=== PATIENT | male | born 1975 | race Caucasian/White ===

== ENCOUNTER 2016-10-14 01:33 | Inpatient (IN) | payer OTHER ==
[~2016-10-14] VITALS: Ht 193 cm; Wt 82.6 kg
[~2016-10-14 01:33] MED LIST: FLOMAX0.4 M1 PO; VICODIN 5-3001 EACH PO
--- NOTE | 2016-10-14 09:40 | Operative Report ---
Operative/Inv Procedure Report Surgery Date: 10/14/16 Name of Procedure: R renal ESWL Pre-Operative Diagnosis: Right renal calculus Post-Operative Diagnosis: Same Estimated Blood Loss: scant Surgeon/Clerk To Justice: Amandeep KHAN,YOUNG House Anesthesia: moderate sedation Drains: None Specimens: None Complications: None Condition: Stable Operative Indication: Right renal calculus, 1 cm in size, with right flank pain Operative/Procedure Note Note: The patient was taken to the lithotripsy room and identified. He was placed in supine position on the lithotripsy table and a timeout was executed appropriately with the patient awake. Intravenous sedation was given. The stone was localized by ultrasound the F2 focal point. The treatment was then begun. The energy level was started at a minimal level and was increased to a maximum level. A total of 2500 shocks were given. The stone did appear to fragment by ultrasound criteria. The patient tolerated the procedure wellcompletion was taken Findings: 1 cm right renal pelvic stone Discharge Disposition: PACU
[2016-10-14 14:01] LABS: ABSOLUTE BASOPHIL COUNT 0 /CUMM (0.0-0.2); ABSOLUTE EOSINOPHIL COUNT 0 /CUMM (0.0-0.7); ABSOLUTE GRANULOCYTE CT 10.5 /CUMM (1.4-6.5); ABSOLUTE LYMPH COUNT 1.1 /CUMM (1.2-3.4); ABSOLUTE MONOCYTE COUNT 0.8 /CUMM (0.10-0.60); BASOPHIL % 0.2 % (0.0-2.0); EOSINOPHIL % 0.2 % (0-5); HEMATOCRIT 37.6 % (42-52); MEAN CORPUSCULAR HGB 21.9 PG (27.0-31.0); MEAN CORPUSCULAR HGB CONC 32.8 G/DL (33.0-37.0); MEAN CORPUSCULAR VOLUME 66.8 FL (80.0-94.0); MEAN PLATELET VOLUME 8.1 FL (7.4-10.4); PLATELET COUNT 244 /CUMM (130-400); RBC DISTRIBUTION WIDTH 14.4 % (11.5-14.5); RED BLOOD CELL CT 5.63 /CUMM (4.70-6.10)
[2016-10-14 14:41] LABS: GRANULOCYTE % 84.4 % (42.2-75.2)
[2016-10-14 14:51] LABS: WHITE BLOOD CELL COUNT 12.5 /CUMM (4.8-10.8)
[2016-10-14 16:02] VITALS: BP 164/110
--- NOTE | 2016-10-14 18:03 | CT SCAN REPORT ---
EXAMINATION: CT ABDOMEN AND PELVIS WITHOUT CONTRAST CLINICAL INFORMATION: Stone fragments. Evaluate for hydronephrosis. Status post ESWL COMPARISON: CT stone study dated 09/24/2016 TECHNIQUE: Multidetector volumetric imaging was performed from the superior aspect of the liver through the pubic symphysis. Sagittal and coronal reformatted images were obtained on the technologist's workstation. DLP: 332.03 mGy-cm FINDINGS: LUNG BASES: Interval development of bibasilar dependent atelectatic changes.. LIVER, GALLBLADDER, AND BILIARY TREE: The liver is normal in size, shape, and attenuation. No focal hepatic lesion or biliary ductal dilatation is present. The gallbladder is unremarkable with no evidence of radiopaque gallstones, gallbladder wall thickening, or obvious pericholecystic inflammatory changes. PANCREAS: Unremarkable. SPLEEN: Unremarkable. ADRENAL GLANDS: Unremarkable. KIDNEYS AND URETERS: Previously identified large calculus within the renal pelvis is no longer visualized. New dependent calcific debris noted in the renal pelvis and calyces compatible with post ESWL changes. The slightly larger calcific fragments noted in the calyces in the mid and lower pole measuring approximately 0.5 to 0.7 cm[address] Stein[address]asse sign with multiple small fragments noted in the distal right ureter and UVJ with the largest fragment measuring approximately 0.7 cm. (Coronal images 56-60). Tiny debris also noted in the mid right ureter. There is interval increase in the hazy perinephric and periureteric stranding surrounding the right kidney, renal pelvis and ureter. Stable nonobstructing calculi noted in the mid and lower left kidney measuring approximately 0.2 cm and 0.7 cm in maximal diameter respectively. BLADDER: Obstructing calculi noted in the right UVJ as detailed. Tiny calculi also noted within the urinary bladder. GASTROINTESTINAL TRACT: No acute bowel pathology. Nonobstructive bowel gas pattern. Visualized bowel perez are within normal limits. ABDOMINAL WALL: No significant hernia is appreciated. LYMPH NODES: Normal. VASCULAR: Unremarkable. PELVIC VISCERA: Mildly enlarged prostate gland measuring approximately 4.2 cm in greatest transverse diameter. OSSEOUS STRUCTURES: No acute osseous abnormality. IMPRESSION: 1. Post ESWL. Multiple calcific fragments varying in size from amorphous debris to approximately 0.7 cm noted within the right renal pelvicalyceal system and right ureter. Multiple stone fragments in the distal ureter/UVJ "Steinstrasse" resulting in obstructive uropathy. It is difficult to measure individual fragments. The larger fragment appears to measure approximately 0.7 cm. 2. Tiny calculi within the urinary bladder. 3. Increasing perinephric and periureteric stranding. 4. Stable nonobstructing left renal calculi. 5. Interval development of bibasilar dependent atelectatic changes bilateral lung bases
[2016-10-14 21:16] VITALS: BP 156/84
[2016-10-15 00:01] VITALS: BP 150/90
[2016-10-15 01:30] VITALS: BP 148/80
--- NOTE | 2016-10-15 07:24 | History & Physical Pre-Op ---
General Information and HPI Source of Information: patient, old records Exam Limitations: no limitations History of Present Illness: This patient was diagnosed with a 1 cm R renal pelvic stone on a w/u for hematuria. On 10/14/16 he underwent R renal ESWL. Postop he developed significant R flank pain and nausea and vomiting and was admitted. CT scan shows steinstrasse of the R distal ureter. He continues to have R flank pain and nausea and vomiting. Allergies/Medications Allergies: Coded Allergies: No Known Allergies (10/11/16) Home Med list Hydrocodone/Acetaminophen (Vicodin 5-300 MG Tablet) (Unknown Strength) TABLET (Unknown Dose) PO PRN PAIN (Reported) Tamsulosin HCl (Flomax) 0.4 MG CAP.ER.24H 1 CAP PO DAILY KIDNEY STONES ( Reported) Compliance With Home Meds: GOOD Past History Medical History Blood Transfusion Hx: No Neurological: NONE EENT: NONE Cardiovascular: hypertension Respiratory: NONE Gastrointestinal: NONE Hepatic: NONE Renal: nephrolithiasis Musculoskeletal: NONE Psychiatric: anxiety, depression Endocrine: NONE Blood Disorders: THALASSEMIA MINOR Cancer(s): NONE ANIMAL ATTENDANT/Reproductive: NONE History of MRSA: No History of VRE: No History of CDIFF: No Isolation History: Standard Surgical History Pertinent Surgical History: none (ESWL) Past Family/Social History Family History Relations & Conditions if any Relation not specified for: *No pertinent family history Psychosocial History Smoking Status: Unknown If Ever Smoked Exam & Diagnostic Data Last 24 Hrs of Vital Signs/I&O Vital Signs Date Time Temp Pulse Resp B/P Pulse O2 O2 Flow FiO2 Ox Delivery Rate 10/15 0130 98.4 75 19 148/80 96 Room Air 10/15 0001 98.4 82 18 150/90 97 Room Air 10/14 2116 62 156/84 10/14 1658 96 160/108 10/14 1602 97.9 62 20 164/110 98 Intake & Output 10/15 0800 10/15 0000 10/14 1600 Intake Total Output Total 875 Balance -875 Output, 200 Emesis Output, Urine 675 Patient 182 lb Weight Moderate discomfort Chest: normal respiratory effort Heart: RRR Back: R CVA tenderness Abd: non tender Laboratory Tests 10/15 10/14 0645 1358 Chemistry Sodium (137 - 145 mmol/L) Pending 138 Potassium (3.5 - 5.1 mmol/L) Pending 4.4 Chloride (98 - 107 mmol/L) Pending 101 Carbon Dioxide (22 - 30 mmol/L) Pending 29 Anion Gap (5 - 16) Pending 8 BUN (9 - 20 mg/dL) Pending 14 Creatinine (0.7 - 1.2 mg/dL) Pending 0.8 Estimated GFR (>60 ml/min) > 60 BUN/Creatinine Ratio (7 - 25 %) Pending 17.5 Hematology CBC w Diff Pending NO MAN DIFF REQ WBC (4.8 - 10.8 /CUMM) Pending 12.5 H RBC (4.70 - 6.10 /CUMM) Pending 5.63 Hgb (14.0 - 18.0 G/DL) Pending 12.4 L Hct (42 - 52 %) Pending 37.6 L MCV (80.0 - 94.0 FL) Pending 66.8 L MCH (27.0 - 31.0 PG) Pending 21.9 L RDW (11.5 - 14.5 %) Pending 14.4 Plt Count (130 - 400 /CUMM) Pending 244 MPV (7.4 - 10.4 FL) Pending 8.1 Gran % (42.2 - 75.2 %) 84.4 H Lymphocytes % (20.5 - 51.1 %) 9.0 L Monocytes % (1.7 - 9.3 %) 6.2 Eosinophils % (0 - 5 %) 0.2 Basophils % (0.0 - 2.0 %) 0.2 Absolute Granulocytes (1.4 - 6.5 /CUMM) 10.5 H Absolute Lymphocytes (1.2 - 3.4 /CUMM) 1.1 L Absolute Monocytes (0.10 - 0.60 /CUMM) 0.8 H Absolute Eosinophils (0.0 - 0.7 /CUMM) 0 Absolute Basophils (0.0 - 0.2 /CUMM) 0 PUBS MCHC (33.0 - 37.0 G/DL) Pending 32.8 L Assessment/Plan Assessment/Plan: Imp: Multiple R distal ureteral stone fragments Plan: NPO today Will schedule cysto and attempted R ureteral stent today As Ranked By This Provider Problem List: 1. Ureteral colic Attending MD Review Statement Attending Statement Attending MD Statement: examined this patient
[2016-10-15 07:43] LABS: ABSOLUTE BASOPHIL COUNT 0 /CUMM (0.0-0.2); ABSOLUTE EOSINOPHIL COUNT 0 /CUMM (0.0-0.7); ABSOLUTE GRANULOCYTE CT 8.3 /CUMM (1.4-6.5); ABSOLUTE MONOCYTE COUNT 1.2 /CUMM (0.10-0.60); BASOPHIL % 0 % (0.0-2.0); EOSINOPHIL % 0.2 % (0-5); GRANULOCYTE % 79.2 % (42.2-75.2); HEMATOCRIT 35.2 % (42-52); MEAN CORPUSCULAR HGB 22.1 PG (27.0-31.0); MEAN CORPUSCULAR HGB CONC 32.4 G/DL (33.0-37.0); MEAN CORPUSCULAR VOLUME 68.2 FL (80.0-94.0); MEAN PLATELET VOLUME 8.4 FL (7.4-10.4); PLATELET COUNT 200 /CUMM (130-400); RBC DISTRIBUTION WIDTH 14.5 % (11.5-14.5); RED BLOOD CELL CT 5.17 /CUMM (4.70-6.10); WHITE BLOOD CELL COUNT 10.5 /CUMM (4.8-10.8)
[2016-10-15 08:19] VITALS: BP 146/84
[2016-10-15 13:08] VITALS: BP 146/98
--- NOTE | 2016-10-15 16:25 | RADIOLOGY REPORT ---
EXAMINATION: XR KIDNEYS, URETER, BLADDER CLINICAL INDICATION: Right stent placement COMPARISON: CT 10/14/2016 TECHNIQUE: Intraoperative fluoroscopic assistance was provided to Dr. Espinal for right stent placement. 2 spot images were saved. Total fluoroscopic time was 17.9 seconds. FINDINGS: First image demonstrates the upper portion of a right ureteral stent overlying the pelvis. There is contrast opacification of the renal pelvis and proximal ureter. Second image demonstrates the lower part of a ureteral stent in the region of the urinary bladder. IMPRESSION: Intraoperative fluoroscopic assistance for right ureteral stent placement. See procedure note for full details.
--- NOTE | 2016-10-15 16:29 | Operative Report ---
Operative/Inv Procedure Report Surgery Date: 10/15/16 Name of Procedure: Cystoscopy and insertion of right double-J ureteral stent Pre-Operative Diagnosis: Right hydroureteronephrosis due to right ureteral steinstrasse Post-Operative Diagnosis: Same Estimated Blood Loss: maritza Surgeon/Loading Unit Operator Crimping: Teddy KHAN, Al FUNEZ MD,AL House Anesthesia: local monitored anesthesi Drains: 28 cm 6 Malaysian right double-J ureteral stent with a long suture Specimens: Right kidney urine for culture Complications: None Condition: Stable Operative Indication: This patient underwent ESWL one day prior to the present procedure. This was done for 1 cm stone in the right renal pelvis. Patient developed severe right flank pain and required admission to the hospital. Noncontrast CT of the abdomen and pelvis showed right distal ureteral Steinstrasse therefore was felt that he should have a right double-J ureteral stent placed Operative/Procedure Note Note: The patient was taken to the cystoscopy room and identified. He was placed in supine position on the cystoscopy table. A timeout was executed appropriately with the patient awake. Intravenous anesthesia was then given. He was then placed in the dorsolithotomy position and prepped and draped in usual fashion for cystoscopy. Surgical pause was executed appropriately. Fluoroscopy image was taken with a marker on the right side of the abdomen to confirm the correct side of the surgery as well as the correct orientation of the fluoroscopy image. Distal ureteral stone fragments could be seen on this image. The 22 Malaysian cystoscope sheath was placed into the bladder under direct vision using the 30 lens. Anterior urethra was normal. Prostatic urethra was nonobstructing. The bladder was essentially normal. The right ureteral orifice appeared in normal location. A guidewire was placed through the cystoscope and into the right ureter and advanced up the level of the kidney. Once the wire was placed fair amount of debris was expelled from the right ureter. An open-ended catheter was placed over the wire and the wire removed. Some contrast was injected to outline the right renal collecting system after a hydronephrotic drip was noted and urine collected for culture. The contrast injection confirmed the right moderate hydronephrosis. The guidewire was placed back through the open-ended catheter which was removed. Under visual fluoroscopic control a 28 cm 6 Malaysian right double-J ureteral stent was placed. Fluoroscopy confirmed the proximal and coiled in the renal pelvis and the distal end coiled in the bladder. A long suture was left attached the distal and the stent exiting the urethra. Patient tolerated the procedure well and as completion was taken recovery room in stable condition. Findings: Right hydroureteronephrosis due to right distal ureteral Steinstrasse Discharge Disposition: PACU
[2016-10-15 20:11] VITALS: BP 160/90
[2016-10-16 00:13] VITALS: BP 110/80
[2016-10-16 05:54] VITALS: BP 120/70
[2016-10-16 08:00] VITALS: BP 120/78
--- NOTE | 2016-10-16 10:05 | PN- Urology ---
Subjective Subjective: No distress Objective Vital Signs and I&Os Vital Signs Date Time Temp Pulse Resp B/P Pulse O2 O2 Flow FiO2 Ox Delivery Rate 10/16 08 97.4 69 18 120/78 96 Room Air 10/16 0554 98.2 71 20 120/70 98 Room Air 10/16 0013 98.5 90 20 110/80 96 Room Air 10/15 2010 98.9 88 20 160/90 97 10/15 1308 146/98 Intake & Output 10/16 1600 10/16 0800 10/16 0000 10/15 1600 10/15 0800 10/15 0000 Intake Total 1120 923 947 7502 Output Total 1200 1500 1150 875 Balance -80 -760 -275 125 Intake, IV 1000 043 187 2408 Intake, Oral 120 240 0 Number 0 0 0 Bowel Movements Output, 200 Emesis Output, Urine 1200 1500 1150 675 Patient 182 lb Weight Back: no CVA tenderness Abd: soft and nontender Assessment/Plan Assessment/Plan Imp: s/p R renal ESWL with R distal ureteral steinstrasse s/p R ureteral stent Plan: Discharge home today on flomax f/u in office in 1 week with KUB before Core Measures/Miscellaneous Venous Thromboembolism VTE Risk Factors: Acute medical illness, Age > 40 VTE Contraindications: No Contraindications VTE Prophylaxis Ordered Inpt: Pharm- Heparin VTE Diagnosis: No Beta Kaleb Is Beta Kaleb a Home Med? No Antibiotics Is Patient on Antibiotics? No
[2016-10-16 10:50] VITALS: BP 120/78
--- NOTE | 2016-10-16 12:57 | Discharge Summary ---
Visit Information Visit Dates Admission Date: 10/14/2016 Discharge Date: 10/16/2016 Hospital Course Course Attending Physician: ARMIN KHAN,YOUNG House Primary Care Physician: MICHAEL FORBES DO Hospital Course: He underwent ESWL on 10/14/2016 for a 1 cm R renal stone. Following the procedure he developed severe R flank pain and was admitted for pain control. A CT scan showed multiple stone fragments in the R distat ureter with moderate R hydronephrosis. On 10/15/16 he underwent cystostopy and insertion of a R ureteral stent. His R flank pain then resolved and he was discharged home. He will f/u in the office in about 1 week with a KUB before. Complications: R ureteral colic due to multiple stone fragments in the R distal ureter Allergies: Coded Allergies: No Known Allergies (10/11/16) Significant Procedures: R renal ESWL Cystoscopy and insertion of R ureteral stent Disposition Summary Disposition Principal Diagnosis: R renal and ureteral stones Additional Diagnosis: none Discharge Disposition: home or self care Discharge Instructions General Discharge Information Code Status: Full Code Patient's Diet: flomax Patient's Activity: as tolerated Follow-Up Instructions/Appts: office f/u in 7-10 days with KUB before Medications at Discharge Discharge Medications: Continue taking these medications: Tamsulosin HCl (Flomax) 0.4 MG CAP.ER.24H 1 Capsule ORAL DAILY Comments: Last Taken:10/16/16 Time:10:50AM Hydrocodone/Acetaminophen (Vicodin 5-300 MG Tablet) (Unknown Strength) TABLET Unknown Dose ORAL as needed for PAIN Comments: Last Taken:10/14/16 Time:8:20PM Copies To: MICHAEL FORBES DO
[2016-10-17] MEDS ORDERED: DILAUDID2 M1 PO (17:49)
[2016-10-17] MEDS ORDERED: MOVANTIK12.5 M1 PO (18:01)
== END 2016-10-16 13:25 | DRG 669 ==
LOC: ENRESERVTM → ENRESERV → CANRESERV → ENRESERVDT → STS 01:33 → PACUH 13:25 → 2NB 13:25 → ENPENDDIS 13:25 → 2NB 13:25
PROVIDERS: Physician Assistant; ADMIT Urology
PROC: 0TC Urinary System, Extirpation (ICD-10-PCS; principal; 2016-10-14)
PROC: 0T767DZ Dilation of Right Ureter with Intraluminal Device, Via Natural or Artificial Opening (ICD-10-PCS; 2016-10-14)
DX: N20.0 Calculus of kidney (principal); N13.2 Hydronephrosis with renal and ureteral calculous obstruction; I10 Essential (primary) hypertension; D56.3 Thalassemia minor
CPT/HCPCS: 2NBSP; 74000; 74176; 82355; 82436; 87086; C2617; J0131; J0690; J1170; J1644; J2405; J7042

== ENCOUNTER 2016-10-17 13:01 | Emergency (ER) | payer OTHER ==
[~2016-10-17] VITALS: Ht 193 cm; Wt 81.6 kg
--- NOTE | 2016-10-17 13:39 | ED GI/GU/ABDOMINAL COMPLAINT ---
History of Present Illness General Chief Complaint: Male Genitourinary Problems Stated Complaint: KIDNEY STONES SENT BY DR ALEXANDER Source: patient, family, old records Exam Limitations: no limitations Vital Signs & Intake/Output Vital Signs & Intake/Output Vital Signs Date Time Temp Pulse Resp B/P Pulse O2 O2 Flow FiO2 Ox Delivery Rate 10/17 1811 97.9 63 16 134/83 97 Room Air 10/17 1430 97.4 82 20 129/82 95 Room Air 10/17 1315 98.2 64 18 148/84 96 Room Air Allergies Coded Allergies: No Known Allergies (10/11/16) Reconcile Medications Hydrocodone/Acetaminophen (Vicodin 5-300 MG Tablet) (Unknown Strength) TABLET (Unknown Dose) PO PRN PAIN (Reported) Hydromorphone HCl (Dilaudid) 2 MG TABLET 1 TAB PO BID PRN BREAKTHROUGH PAIN Naloxegol Oxalate (Movantik) 12.5 MG TABLET 1 TAB PO DAILY PRN CONSTIPATION Tamsulosin HCl (Flomax) 0.4 MG CAP.ER.24H 1 CAP PO DAILY KIDNEY STONES ( Reported) Triage Note: STATES THAT HE HAD R SIDE STONES BLASTED FRIDAY , AND STENTS PLACED FRIDAY , PT WAS DISCHARGED YESTERDAY AND THE PAIN THIS AM IS UNBEARABLE. Triage Nurses Notes Reviewed? yes Onset: Abrupt Duration: day(s): (1), constant Timing: recent history Quality/Severity: sharpness, severe, stabbing Severity Numbers: 10 Location: right flank Radiation: no radiation Activities at Onset: none Prior Abdominal Problems: similar symptoms No Modifying Factors: none Associated Symptoms: denies HPI: This is a 41-year-old male who presents to emergency room complaining of progressively worsening right flank pain, has history significant that he was recently discharged yesterday after having lithotripsy performed on October 14fall by cystoscopy and stenting on on the October 15. He states that his pain was controlled with Dilaudid in the hospital and was sent home on Vicodin and Flomax. He is taking 2 doses of Vicodin this morning without improvement in his pain. He denies any difficulty with urination, he states he has been constipated for the past 1 week. No fever no chills. There are no modifying factors or associated symptoms otherwise no nausea no vomiting. Past History Travel History Traveled to [place] past 21 day No Medical History Any Pertinent Medical History? see below for history Neurological: NONE EENT: allergies Cardiovascular: hypertension Respiratory: NONE Gastrointestinal: NONE Hepatic: NONE Renal: nephrolithiasis Musculoskeletal: NONE Psychiatric: anxiety, depression Endocrine: NONE Blood Disorders: THALASSEMIA MINOR Cancer(s): NONE SWIMMING TEACHER/Reproductive: NONE History of MRSA: No History of VRE: No History of CDIFF: No Surgical History Surgical History: 10/14/16 R LITHOTRIPSY 10/15/16 CYSTO/R STENT Psychosocial History Who do you live with Significant Other Services at Home None What is your primary language Czech Tobacco Use: Never used ETOH Use: denies use Illicit Drug Use: denies illicit drug use Family History Family History, If Any: Relation not specified for: *No pertinent family history Hx Contributory? No Review of Systems Review of Systems Constitutional: Reports: see HPI. All Other Systems: Reviewed and Negative Comments Review of systems: See HPI, All other systems negative. Constitutional, no chills no fever, no malaise\ HEENT: no sore throat no congestion Cardiovascular: No chest pain , no palpitation Skin, no rashes, no change in skin Respiratory: No dyspnea no cough no sputum GI: No nausea no vomiting, no diarrhea : No dysuria No hematuria, no frequency, no discharge Muscle skeletal: No joint pain, no back pain, no neck pain, Neurologic: No numbness no headache Psych: No stress Heme/endocrine: No bruising no bleeding Immunology: No lymphadenopathy Physical Exam Physical Exam General Appearance: well developed/nourished, alert, awake Gastrointestinal: normal bowel sounds, soft, non-tender Comments: Well-developed well-nourished person in no acute distress HEENT: Normal EENT exam; PERRL, EOMI, HEAD is atraumatic. moist mucous membranes. Neck: Supple, normal range of motion Back: Nontender, no CVA tenderness. Full range of motion Cardiovascular: Regular rate and rhythms no murmurs rubs Respiratory: Chest nontender.There were no bony deformities, no asymmetry. No respiratory distress. Patient speaking in full complete sentences. Breath sounds clear to auscultation bilaterally: NO W/R/R Abdomen: Soft, nontender nondistended, no appreciable organomegaly. Normal bowel sounds. No rebound/guarding, negative Delgado's sign Extremity: No edema, full range of motion of extremities Neuro: Alert oriented x3, motor sensory normal, There were no obvious focal neurologic abnormalities. Skin: No appreciable rash on exposed skin, skin is warm and dry. Psych: Mood and affect is normal, memory and judgment is normal. Core Measures ACS in differential dx? No Severe Sepsis Present: No Septic Shock Present: No Progress Differential Diagnosis: appendicitis, bowel obstruction, colon cancer, cholecystitis, gastritis, hepatitis, hernia, ischemic bowel, inflamm bowel dis, pancreatitis, prostatitis, peptic ulcer, PUD/GERD, ureterolithiasis, urinary retention, urethritis, UTI/pyelo Plan of Care: Orders Procedure Date/time Status Add-on Test (ER Only) 10/17 175 Active CULTURE,URINE 10/17 1710 Active Saline Lock 10/17 1340 Active URINALYSIS 10/17 134 Complete COMPREHENSIVE METABOLIC PANEL 10/17 134 Complete CBC WITHOUT DIFFERENTIAL 10/17 1339 Complete Laboratory Tests 10/17/16 1711: Urine Color YEL, Urine Clarity CLEAR, Urine pH 6.0, Ur Specific [place] 1.025, Urine Protein 30 H, Urine Ketones >=80, Urine Nitrite NEG, Urine Bilirubin NEG@ ICTO, Urine Urobilinogen 0.2, Ur Leukocyte Esterase TRACE H, Ur Microscopic SEDIMENT EXAMINED, Urine RBC 15-25 H, Urine WBC 10-15 H, Urine Hemoglobin LARGE H, Urine Glucose NEG 10/17/16 1401: Anion Gap 13, Estimated GFR > 60, BUN/Creatinine Ratio 14.4, Glucose 82, Calcium 9.8, Total Bilirubin 0.8, AST 25, ALT 42, Alkaline Phosphatase 83, Total Protein 6.9, Albumin 4.1, Globulin 2.8, Albumin/Globulin Ratio 1.5, CBC w Diff NO MAN DIFF REQ, RBC 5.59, MCV 67.7 L, MCH 21.9 L, RDW 14.9 H, MPV 8.3, Gran % 85.0 H, Lymphocytes % 7.6 L, Monocytes % 7.0, Eosinophils % 0.4, Basophils % 0 L, Absolute Granulocytes 8.6 H, Absolute Lymphocytes 0.8 L, Absolute Monocytes 0.7 H, Absolute Eosinophils 0, Absolute Basophils 0, PUBS MCHC 32.4 L Microbiology 10/17 1710 URINE ROUT: Urine Culture - RECD Labs ordered old records reviewed patient medicated Toradol 30 Dilaudid 1 mg IV as he states this is what he was being medicated with the hospital with relief ultrasound ordered 10/17/2016 3:45:27 PM patient reports pain has resolved resting comfortably discussed with him at length all of his lab results and ultrasound findings pending UA calls placed to his urologist. Case discussed with Dr. valderrama reviewed the patient's labs and ultrasounds. He states he'll follow-up with the patient later on this evening for follow-up evaluation he feels comfortable with discharging the patient as long as his pain Is controlled which she remains. Discussed the patient at length all of his lab findings ultrasounds. The patient feels comfortable and agrees with plan we will send him home with Dilaudid. Patient is questioning in regards to his constipation which she's had since he was hospitalized, advised consertiave care - colace, miralax fluids, if sx persist rx for movantik provided. d/w the pt need to return at anytime sooner if sx worsen, develops fever, chills n/v. he feels comfortable with plan, i answered all of his questions, cleared for dc (GAIL HUNTER,ALAN) Diagnostic Imaging: Viewed by Me: Ultrasound. Discussed w/RAD: Ultrasound. Radiology Impression: PATIENT: SANGITA LANGLEY PRESENT AGE: 41 PATIENT ACCOUNT NO: [id number] : 75 LOCATION: [facility] ORDERING PHYSICIAN: ALAN HUNTER SERVICE DATE: 10/17/161370 EXAM TYPE: US - US-RENAL/KIDNEY EXAMINATION: US RETROPERITONEAL COMPLETE (RENAL) CLINICAL INFORMATION: Recent renal stent placed secondary to renal stones. COMPARISON: CT abdomen and pelvis 10/14/2016. KUB 10/15/2016. TECHNIQUE: Real-time sonographic imaging of the kidneys and bladder. FINDINGS: RIGHT KIDNEY: 13.2 x 6.7 x 5.7 cm (SAG x AP x TRV). The kidney is normal in size, contour, and echogenicity. Renal cortical thickness is within normal limits. There is mild fullness of the right renal pelvis, without kristie hydronephrosis. There are no visible calculi. No renal parenchymal lesions are identified. LEFT KIDNEY: 13.2 x 5.6 x 5.3 cm (SAG x AP x TRV). The kidney is normal in size, contour, and echogenicity. Renal cortical thickness is normal. A 0.5 x 0.3 x 0.7 cm nonobstructing stone is identified within the lower pole of the left kidney. There is no appreciable hydronephrosis of the left kidney. No focal parenchymal lesions are identified. BLADDER: Under distended urinary bladder, limiting evaluation. The bilateral ureteral jets are not visualized. This may be secondary to bladder underdistention. Prevoid bladder volume is 41.7 mL. IMPRESSION: 1. Mild fullness of the right renal pelvis, without kristie hydronephrosis. No visible echogenic intrarenal foci within the right kidney to suggest nephrolithiasis. 2. Nephrolithiasis of the left kidney, with a 0.5 x 0.3 x 0.7 cm calculus identified within the lower pole of the left kidney. No hydronephrosis of the left kidney. 3. Nonvisualization of the bilateral ureteral jets. DICTATED BY: MARY ALICE VEELZ MD DATE/TIME DICTATED:10/17/161509 IDEA MAN:DYLAN DATE/TIME TRANSCRIBED:10/17/161509 CONFIDENTIAL, DO NOT COPY WITHOUT APPROPRIATE AUTHORIZATION. <Electronically signed in Other Vendor System> SIGNED BY: MARY ALICE VELEZ MD 10/17/16 1525 Initial ED EKG: none Departure Departure Time of Disposition: 175 Disposition: HOME OR SELF CARE Condition: Stable Clinical Impression Primary Impression: Flank pain Referrals: ARMIN KHAN,MICHAEL BELLAMY DO (PCP/Family) Additional Instructions: follow upwith dr valderrama tomorrow. dilaudid for breakthrough pain- this will make you drowsy- do not take this with the vicodin you have already. return with any concerns Departure Forms: Customer Survey General Discharge Information Prescriptions: Current Visit Scripts Hydromorphone HCl (Dilaudid) 1 TAB PO BID PRN BREAKTHROUGH PAIN #12 TAB Naloxegol Oxalate (Movantik) 1 TAB PO DAILY PRN CONSTIPATION #7 TAB
[2016-10-17 14:09] LABS: ABSOLUTE BASOPHIL COUNT 0 /CUMM (0.0-0.2); ABSOLUTE EOSINOPHIL COUNT 0 /CUMM (0.0-0.7); ABSOLUTE GRANULOCYTE CT 8.6 /CUMM (1.4-6.5); ABSOLUTE LYMPH COUNT 0.8 /CUMM (1.2-3.4); ABSOLUTE MONOCYTE COUNT 0.7 /CUMM (0.10-0.60); BASOPHIL % 0 % (0.0-2.0); EOSINOPHIL % 0.4 % (0-5); HEMATOCRIT 37.8 % (42-52); MEAN CORPUSCULAR HGB 21.9 PG (27.0-31.0); MEAN CORPUSCULAR HGB CONC 32.4 G/DL (33.0-37.0); MEAN CORPUSCULAR VOLUME 67.7 FL (80.0-94.0); MEAN PLATELET VOLUME 8.3 FL (7.4-10.4); PLATELET COUNT 234 /CUMM (130-400); RBC DISTRIBUTION WIDTH 14.9 % (11.5-14.5); RED BLOOD CELL CT 5.59 /CUMM (4.70-6.10); WHITE BLOOD CELL COUNT 10.1 /CUMM (4.8-10.8)
--- NOTE | 2016-10-17 15:25 | ULTRASOUND REPORT ---
EXAMINATION: US RETROPERITONEAL COMPLETE (RENAL) CLINICAL INFORMATION: Recent renal stent placed secondary to renal stones. COMPARISON: CT abdomen and pelvis 10/14/2016. KUB 10/15/2016. TECHNIQUE: Real-time sonographic imaging of the kidneys and bladder. FINDINGS: RIGHT KIDNEY: 13.2 x 6.7 x 5.7 cm (SAG x AP x TRV). The kidney is normal in size, contour, and echogenicity. Renal cortical thickness is within normal limits. There is mild fullness of the right renal pelvis, without kristie hydronephrosis. There are no visible calculi. No renal parenchymal lesions are identified. LEFT KIDNEY: 13.2 x 5.6 x 5.3 cm (SAG x AP x TRV). The kidney is normal in size, contour, and echogenicity. Renal cortical thickness is normal. A 0.5 x 0.3 x 0.7 cm nonobstructing stone is identified within the lower pole of the left kidney. There is no appreciable hydronephrosis of the left kidney. No focal parenchymal lesions are identified. BLADDER: Under distended urinary bladder, limiting evaluation. The bilateral ureteral jets are not visualized. This may be secondary to bladder underdistention. Prevoid bladder volume is 41.7 mL. IMPRESSION: 1. Mild fullness of the right renal pelvis, without kristie hydronephrosis. No visible echogenic intrarenal foci within the right kidney to suggest nephrolithiasis. 2. Nephrolithiasis of the left kidney, with a 0.5 x 0.3 x 0.7 cm calculus identified within the lower pole of the left kidney. No hydronephrosis of the left kidney. 3. Nonvisualization of the bilateral ureteral jets.
[2016-10-17] MEDS ORDERED: DILAUDID2 M1 PO (17:49)
[2016-10-17] MEDS ORDERED: MOVANTIK12.5 M1 PO (18:01)
[2016-10-17 18:11] VITALS: BP 134/83
== END 2016-10-17 18:20 ==
LOC: ERH 13:01
PROVIDERS: Physician Assistant Medical
DX: R10.9 Unspecified abdominal pain (principal)
CPT/HCPCS: 76775; 81001; 87086; 96374; 96375; J1885